=== PATIENT | female | born 1940 | race Caucasian/White ===

== ENCOUNTER 2018-11-21 00:04 | Inpatient (IN) | payer MEDICARE ==
[~2018-11-21] VITALS: Ht 160 cm; Wt 75.3 kg
[~2018-11-21 00:04] MED LIST: ALDACTONE50 MG PO; ASPIRIN325 MG PO; BENICAR HCT 20-1 TA1 PO; K-DUR20 MEQ PO; LASIX20 MG; LASIX20 MG PO; METOPROLOL TART50 MG PO; PRAVACHOL40 MG PO; SYMBICORT 16010.2 GM INH
[2018-11-21] MEDS ORDERED: ALBUTEROL SULF8.5 GM INH (00:09)
[2018-11-21 01:56] LABS: BASOPHILS 0.1 % (0-2); EOSINOPHILS 4.3 % (0-7); HEMATOCRIT 35.4 % (36.0-48.0); HEMOGLOBIN 11.8 g/dL (12-16); IMMATURE GRANULOCYTES 0.8 % (0-5); LYMPHOCYTES 10.2 % (15-50); MCH 28.5 pg (26.0-34.0); MCHC 33.3 g/dL (31.0-37.0); MCV 85.5 fL (80.0-100.0); MEAN PLATELET VOLUME 10.1 fL (7.4-10.4); MONOCYTES 13.2 % (2-11); NEUTROPHILS 71.4 % (40-80); PLATELET COUNT 233 10x3/uL (130-400); RBC 4.14 10x6/uL (4.00-5.40); RDW 15.6 % (11.5-14.5); WBC 15.4 10x3/uL (4.8-10.8)
[2018-11-21 02:06] LABS: APTT 23.6 SECONDS (22.8-39.4); INR 0.98 (0.85-1.17); PROTIME 12.5 SECONDS (11.6-15.0)
[2018-11-21 02:10] LABS: ALBUMIN 3.1 g/dL (3.4-5.0); ANION GAP 13.9 mmol/L (8-16); BILIRUBIN - TOTAL 0.14 mg/dL (0.2-1.3); CALCIUM 8.6 mg/dL (8.5-10.1); CREATININE - SERUM 1.8 mg/dL (0.6-1.3); POTASSIUM - SERUM 4.9 mmol/L (3.5-5.1); PROTEIN - SERUM 6.4 g/dL (6.4-8.2)
--- NOTE | 2018-11-21 03:30 | NUR ---
PT ARRIVED ON UNIT VIA WHEELCHAIR ESCORTED BY ER NURSE AND FAMILY MEMBERS. POSITIONED IN BED FOR COMFORT. ORIENTED TO ROOM AND CALL LIGHT.
[2018-11-21 04:00] VITALS: BP 167/70
--- NOTE | 2018-11-21 04:00 | NUR ---
STARTED IV FLUIDS PER ORDER.
[2018-11-21 04:02] VITALS: BP 167/70; BMI 29.4
--- NOTE | 2018-11-21 04:17 | NUR ---
ADMISSION ASSESSMENT AND HISTORY COMPLETE.
--- NOTE | 2018-11-21 08:06 | NUR ---
eyes closed, even unlabored breathing, family present in room, splint and juan josé wrap applied to right wrist, left wrist iv patent, ns at 50ml/hr, on room air, denies any current needs or discomforts, bed lowered and locked, call light within reach. cpoc
[2018-11-21 12:38] VITALS: Ht 160 cm; Wt 75.3 kg
--- NOTE | 2018-11-21 13:40 | NUR ---
PRE OP COMPLETED
[2018-11-21 14:20] VITALS: BP 159/65
--- NOTE | 2018-11-21 15:53 | NUR ---
RIGHT ARM BLOCK DONE IN HOLDING AREA PER ANESTHESIA PAULINE KUMARI.
--- NOTE | 2018-11-21 16:08 | NUR ---
I have reviewed this patient and I concur with the Shift Assessment completed by the Licensed Practical Nurse today this shift.
[2018-11-21 16:38] VITALS: BP 161/70
--- NOTE | 2018-11-21 19:00 | NUR ---
REPORT RECEIVED AND CARE OF PT ASSUMED. PT LYING IN HIGH HOOPER'S POSITION WITH RIGHT ARM IN A SLING. IV IN LEFT WRIST PATENT WITH NS INFUSING AT 50 ML / HR. WILL MONITOR FOR NEEDS.
--- NOTE | 2018-11-21 19:57 | NUR ---
GAVE TYLENOL 1000 ML PO PER REQUEST FOR PAIN. WILL MONITOR FOR EFFECTIVENESS.
[2018-11-21 20:00] VITALS: BP 155/82
--- NOTE | 2018-11-21 22:13 | NUR ---
PT RESTING IN LOW HOOPER'S POSITION WITH EYES CLOSED. RIGHT FINGERS PINK AND WARM. DAUGHTER IS AT BEDSIDE.
[2018-11-22 04:00] VITALS: BP 148/72
--- NOTE | 2018-11-22 04:26 | NUR ---
IV LEAKING...REMOVED WITH CATHETER TIP INTACT. RE-SITED TO LEFT WRIST USING 22 GUAGE CATHETER IN ONE STICK. IV FLUIDS RE-STARTED.
[2018-11-22 05:05] LABS: BASOPHILS 0.1 % (0-2); EOSINOPHILS 0 % (0-7); HEMOGLOBIN 11.4 g/dL (12-16); IMMATURE GRANULOCYTES 0.3 % (0-5); LYMPHOCYTES 4.6 % (15-50); MCH 28.2 pg (26.0-34.0); MCHC 32.6 g/dL (31.0-37.0); MCV 86.6 fL (80.0-100.0); MEAN PLATELET VOLUME 10.2 fL (7.4-10.4); MONOCYTES 8.6 % (2-11); NEUTROPHILS 86.4 % (40-80); PLATELET COUNT 232 10x3/uL (130-400); RBC 4.04 10x6/uL (4.00-5.40); RDW 15.5 % (11.5-14.5); WBC 14.7 10x3/uL (4.8-10.8)
[2018-11-22 05:30] LABS: ALBUMIN 3.1 g/dL (3.4-5.0); ANION GAP 17.4 mmol/L (8-16); BILIRUBIN - TOTAL 0.38 mg/dL (0.2-1.3); CALCIUM 8.9 mg/dL (8.5-10.1); CARBON DIOXIDE 22.4 mmol/L (21.0-32.0); CREATININE - SERUM 1.9 mg/dL (0.6-1.3); POTASSIUM - SERUM 4.8 mmol/L (3.5-5.1); PROTEIN - SERUM 6.8 g/dL (6.4-8.2)
--- NOTE | 2018-11-22 07:31 | NUR ---
EYES CLOSED, EASILY AROUSED BY VOICE, ON ROOM AIR, IV TO LEFT WRIST RUNNING NS AT 50ML/HR, SCDS PRESENT, SLING TO RIGHT ARM, LEVY BANAGE AND DRESSING SECURED TO RIGHT WRIST, DENIES ANY CURRENT NEEDS OR DISCOMFORTS, BED LOWERED AND LOCKED, CALL LIGHT WITHIN REACH. CPOC
[2018-11-22 07:56] VITALS: BP 140/80
[2018-11-22 12:49] VITALS: BP 109/76
[2018-11-22] MEDS ORDERED: LASIX40 MG PO (13:07)
--- NOTE | 2018-11-22 15:28 | MORECARE ---
CASE MANAGEMENT DISCHARGE SUMMARY PATIENT: MICHAELA CABRAL J UNIT: [id number] ADM DATE: 11/21/18 AGE: 78 : 41 SEX: F ROOM/BED: D.2224 AUTHOR: CRISPIN SON PHYSICIAN: REFERRING PHYSICIAN: TACOS VELEZ MD DATE OF SERVICE: 11/22/18 Discharge Plan Patient Name: MICHAELA CABRAL [facility] [facility] 1940 Planned Disposition: Home with Home Health Anticipated Discharge Date: 11/22/18 Discharge Date: Expected LOS: 1 Initial Reviewer: [email or web address] Initial Review Date: 11/21/2018 Generated: 11/22/18 4:28 pm DCPIA - Discharge Planning Initial Assessment Updated by [id number]: Kacie Pina on 11/22/18 3:28 pm * Is the patient Alert and Oriented? Yes * How many steps to enter\\exit or inside your home? "many" * PCP DR Velez * Pharmacy [facility] [place], [place] * Preadmission Environment Home Alone * ADLs Independent * Equipment None * Other Equipment N/A * List name and contact numbers for known caregivers / representatives who currently or will assist patient after discharge: Nathen Cabral- [facility]- [phone] [facility] [phone] * Verbal permission to speak to the caregivers and representatives has been obtained from the patient. Yes * Community resources currently utilized None * Please name any agencies selected above. n/a * Additional services required to return to the preadmission environment? Yes * Can the patient safely return to the preadmission environment? Yes * Has this patient been hospitalized within the prior 30 days at any hospital? No Patient Name: MICHAELA CABRAL Page 31147 at 1528 All edits/amendments must be made on the electronic document DICTATION DATE: 11/22/188 MEDIA PRODUCTION OPERATOR: RUTHIE 11/22/181527 RPT#: [id number] DC DATE: STATUS: ADM IN [facility] [address] [place] [address] END OF REPORT
--- NOTE | 2018-11-22 15:51 | MORECARE ---
CASE MANAGEMENT DISCHARGE SUMMARY PATIENT: MICHAELA CABRAL UNIT: [id number] ADM DATE: 11/21/18 AGE: 78 : 41 SEX: F ROOM/BED: D.2224 AUTHOR: HUY,DOC PHYSICIAN: REFERRING PHYSICIAN: TACOS VELEZ MD DATE OF SERVICE: 11/22/18 Discharge Plan Patient Name: MICHAELA CABRAL Facility: [facility]:[place] : 1940 Planned Disposition: Home with Home Health Anticipated Discharge Date: 11/22/18 Discharge Date: Expected LOS: 1 Initial Reviewer: [email or web address] Initial Review Date: 11/21/2018 Generated: 11/22/18 4:51 pm Comments DCP- Discharge Planning Updated by [email or web address]: Kacie Pina on 11/22/18 2:[address] [id number] CM HAD LONG DISCUSSION REGARDING HOME SERVICES, PROVIDERS, TYPES OF SERVICES AND PRIVATE HIRE ASSISTANCE. THE PATIENT' SON, NATHEN, WAS AT THE BEDSIDE. HE ALSO CALLED HIS SISTER, ALANA, TO DISCUSS TYPE OF CARE AND PROVIDERS. THE PATIENT GAVE PERMISSION TO SPEAK WITH HER SON AND DAUGHTER. THEY WERE GIVEN THE PROVIDER LIST. EACH ONE OF H/H WERE REVIEWED. PATIENT AND SON DECIDED NO HOME HEALTH THEN CALLED CM BACK AND REQUESTED [facility] FIRST CHOICE THEN [facility] SECOND CHOICE. POC FORM SIGNED. PATIENT WITH ORIGINAL COPY AND CM WITH ORIGINAL CHART COPY. PATIENT STATED HER DAUGHTER KNOWS THE DIRECTOR AT [facility] H/H. CM TOLD THE PATIENT AND HER SON I WOULD HAVE TO VERIFY THEY COVERED HER AREA IF NOT THEN WOULD CONTACT THEIR SECOND CHOICE [facility]. ADVISED I WOULD CALL IF I HAD TO CHANGE PROVIDERS. TELEPHONE CALL TO [facility] X2. RECEIVED ONLY A VOICE MAIL. MESSAGE LEFT. WILL AWAIT CB. ADVISED THE PATIENT AND HER SON. WILL CONTINUE TO ATTEMPT CONTACT. PATIENT HAS "MANY" STAIRS" TO ENTER HER HOME. THE SON DID NOT WANT TO SAY HOW MANY. STATES SHE WILL BE ASSISTED INTO THE HOUSE AND DOES NOT COME IN AND OUT. STAYS ON THE FIRST FLOOR OF THE HOME. NO DME. NO COMMUNITY OR HOME HEALTH SERVICES PRIOR TO ADMISSION. WAS INDEPENDENT IN HER CARE PRIOR TO THE FALL. STATES HOME IS SAFE. HAS SOME ASSISTANCE FROM HER SON AND DAUGHTER. PATIENT WAS INTERESTED IN PRIVATE SHINGLE CUTTER CARE FROM [facility] [address] AND [facility]. PROVIDED BROCHURE. PCP- DR VELEZ [facility] [place] [facility] [address]- SON WILL PROVIDE NO ADDITIONAL NEEDS IDENTIFIED AT THIS TIME. DCPIA - Discharge Planning Initial Assessment Updated by [email or web address]: Kacie Pina on 11/22/18 3:28 pm * Is the patient Alert and Oriented? Yes * How many steps to enter\\exit or inside your home? "many" * PCP DR Velez * Pharmacy [facility], [place] * Preadmission Environment Home Alone * ADLs Independent * Equipment None * Other Equipment N/A * List name and contact numbers for known caregivers / representatives who currently or will assist patient after discharge: Nathen Cabral- son- [phone] Alana Hunter- dtr- [phone] * Verbal permission to speak to the caregivers and representatives has been obtained from the patient. Yes * Community resources currently utilized None * Please name any agencies selected above. n/a * Additional services required to return to the preadmission environment? Yes * Can the patient safely return to the preadmission environment? Yes * Has this patient been hospitalized within the prior 30 days at any hospital? No Last DP export: 11/22/18 2:28 p Patient Name: MICHAELA CABRAL Page [id number] at 1551 All edits/amendments must be made on the electronic document DICTATION DATE: 11/22/181550 BOWLING BALL MOLD ASSEMBLER: RUTHIE 11/22/181550 RPT#: [id number] DC DATE: STATUS: ADM IN [facility] [address] [place] [address] END OF REPORT
--- NOTE | 2018-11-22 16:00 | NUR ---
DISCHARGE INSTRUCTIONS GIVEN. CASE MANAGEMENT HUBER IS WORKING WITH FAMILY IN ENSURING THEIR CHOICE OF HOME HEALTH IS SET UP, INFORMATION HAS BEEN FAXED TO [facility] WELL A PHONE CALL BEEN PLACED, FOLLOW UP APPOINTMENTS HAVE BEEN INSTRUCTED FOR PT TO CALL SATURDAY TO MAKE THEM, GIVEN INSTRUCTIONS IF THEY DO NOT HEAR FROM EITHER US OR HOME HEALTH TO CALL US SO WE CAN GET EVERYTHING STRAIGHTENED OUT. DENIES ANY CURRENT QUESTIONS OR NEEDS. TRANSPORTED OFF UNIT VIA WHEELCHAIR WITH FAMILY.
--- NOTE | 2018-11-25 06:52 | MORECARE ---
CASE MANAGEMENT DISCHARGE SUMMARY PATIENT: MICHAELA CABRAL UNIT: [id number] ADM DATE: 11/21/18 AGE: 78 : 41 SEX: F ROOM/BED: D.2224 AUTHOR: HUY,DOC PHYSICIAN: REFERRING PHYSICIAN: TACOS VELEZ MD DATE OF SERVICE: 11/25/18 Discharge Plan Patient Name: MICHAELA CABRAL Facility[facility]:[place] : 1940 Planned Disposition: Home with Home Health Anticipated Discharge Date: 11/22/18 Discharge Date: 11/22/2018 Expected LOS: 1 Initial Reviewer: [email or web address] Initial Review Date: 11/21/2018 Generated: 11/25/18 7:52 am Comments DCP- Discharge Planning Updated by [id number]: Kacie Pina on 11/22/18 2:[address] [phone] CM HAD LONG DISCUSSION REGARDING HOME SERVICES, PROVIDERS, TYPES OF SERVICES AND PRIVATE HIRE ASSISTANCE. THE PATIENT' SON, NATHEN, WAS AT THE BEDSIDE. HE ALSO CALLED HIS SISTER, ALANA, TO DISCUSS TYPE OF CARE AND PROVIDERS. THE PATIENT GAVE PERMISSION TO SPEAK WITH HER SON AND DAUGHTER. THEY WERE GIVEN THE PROVIDER LIST. EACH ONE OF H/H WERE REVIEWED. PATIENT AND SON DECIDED NO HOME HEALTH THEN CALLED CM BACK AND REQUESTED [facility] FIRST CHOICE THEN [facility] SECOND CHOICE. POC FORM SIGNED. PATIENT WITH ORIGINAL COPY AND CM WITH ORIGINAL CHART COPY. PATIENT STATED HER DAUGHTER KNOWS THE DIRECTOR AT [facility] H/H. CM TOLD THE PATIENT AND HER SON I WOULD HAVE TO VERIFY THEY COVERED HER AREA IF NOT THEN WOULD CONTACT THEIR SECOND CHOICE [facility]. ADVISED I WOULD CALL IF I HAD TO CHANGE PROVIDERS. TELEPHONE CALL TO [facility] X2. RECEIVED ONLY A VOICE MAIL. MESSAGE LEFT. WILL AWAIT CB. ADVISED THE PATIENT AND HER SON. WILL CONTINUE TO ATTEMPT CONTACT. PATIENT HAS "MANY" STAIRS" TO ENTER HER HOME. THE SON DID NOT WANT TO SAY HOW MANY. STATES SHE WILL BE ASSISTED INTO THE HOUSE AND DOES NOT COME IN AND OUT. STAYS ON THE FIRST FLOOR OF THE HOME. NO DME. NO COMMUNITY OR HOME HEALTH SERVICES PRIOR TO ADMISSION. WAS INDEPENDENT IN HER CARE PRIOR TO THE FALL. STATES HOME IS SAFE. HAS SOME ASSISTANCE FROM HER SON AND DAUGHTER. PATIENT WAS INTERESTED IN PRIVATE MEDICAL ESTHETICIAN CARE FROM [facility] [address] AND [facility]. PROVIDED BROCHURE. PCP- DR VELEZ [facility]- [place] [facility] [address]- SON WILL PROVIDE NO ADDITIONAL NEEDS IDENTIFIED AT THIS TIME. DCPIA - Discharge Planning Initial Assessment Updated by [id number]: Kacie Pina on 11/22/18 3:28 pm * Is the patient Alert and Oriented? Yes * How many steps to enter\\exit or inside your home? "many" * PCP DR Velez * Pharmacy [facility], [place] * Preadmission Environment Home Alone * ADLs Independent * Equipment None * Other Equipment N/A * List name and contact numbers for known caregivers / representatives who currently or will assist patient after discharge: Nathen Cabral- son- [phone] Alana Hunter- dtr- [phone] * Verbal permission to speak to the caregivers and representatives has been obtained from the patient. Yes * Community resources currently utilized None * Please name any agencies selected above. n/a * Additional services required to return to the preadmission environment? Yes * Can the patient safely return to the preadmission environment? Yes * Has this patient been hospitalized within the prior 30 days at any hospital? No Last DP export: 11/22/18 2:51 p Patient Name: MICHAELA CABRAL Page 18670 at 0652 All edits/amendments must be made on the electronic document DICTATION DATE: 11/25/18651 MACHINE SPLITTER: RUTHIE 11/25/1852 RPT#: [id number] DC DATE:11/22/18 STATUS: DIS IN [facility] [address] [facility] [place] [address] END OF REPORT
== END 2018-11-22 16:03 | disposition home health service (06) | DRG 511 ==
LOC: D.ER 00:04 → D.MS 02:10
PROVIDERS: Emergency Medicine; Orthopaedic Surgery; ADMIT Family Medicine; ATTEND Family Medicine
PROC: 0PSHXZZ Reposition Right Radius, External Approach (ICD-10-PCS; 2018-11-21)
PROC: 0PSH04Z Reposition Right Radius with Internal Fixation Device, Open Approach (ICD-10-PCS; principal; 2018-11-21 13:45)
DX: S62.101A Fracture of unspecified carpal bone, right wrist, initial encounter for closed fracture (principal); J81.1 Chronic pulmonary edema; W19.XXXA Unspecified fall, initial encounter; I10 Essential (primary) hypertension; I25.10 Atherosclerotic heart disease of native coronary artery without angina pectoris; E78.5 Hyperlipidemia, unspecified; J44.9 Chronic obstructive pulmonary disease, unspecified

== ENCOUNTER 2019-04-05 08:39 | Emergency (ER) | payer MEDICARE ==
[~2019-04-05] VITALS: Ht 160 cm; Wt 65.9 kg
[~2019-04-05 08:39] MED LIST changes: +ALBUTEROL SULF8.5 GM INH; +LASIX40 MG PO
[2019-04-05 08:47] VITALS: Ht 160 cm; Wt 65.9 kg
[2019-04-05] MEDS ORDERED: SINGULAIR10 MG PO (08:49)
[2019-04-05 09:34] LABS: BASOPHILS 0.3 % (0-2); EOSINOPHILS 6.1 % (0-7); HEMATOCRIT 40.3 % (36.0-48.0); HEMOGLOBIN 13.5 g/dL (12-16); IMMATURE GRANULOCYTES 0.3 % (0-5); LYMPHOCYTES 9.8 % (15-50); MCHC 33.5 g/dL (31.0-37.0); MCV 86.7 fL (80.0-100.0); MEAN PLATELET VOLUME 11.7 fL (7.4-10.4); MONOCYTES 10.5 % (2-11); PLATELET COUNT 220 10x3/uL (130-400); RBC 4.65 10x6/uL (4.00-5.40); RDW 14.6 % (11.5-14.5); WBC 11.6 10x3/uL (4.8-10.8)
[2019-04-05 10:14] LABS: ALBUMIN 3.3 g/dL (3.4-5.0); ANION GAP 13.6 mmol/L (8-16); BILIRUBIN - TOTAL 0.46 mg/dL (0.2-1.3); CALCIUM 8.6 mg/dL (8.5-10.1); CREATININE - SERUM 1.4 mg/dL (0.6-1.3); POTASSIUM - SERUM 4.6 mmol/L (3.5-5.1); PROTEIN - SERUM 6.2 g/dL (6.4-8.2)
[2019-04-05 10:15] LABS: TROPONIN-I 0.027 ng/mL (0.000-0.060)
[2019-04-05 12:13] LABS: TROPONIN-I 0.024 ng/mL (0.000-0.060)
[2019-04-05] MEDS ORDERED: ZOFRAN ODT4 MG/UDTAB PO (12:13)
[2019-04-05] MEDS ORDERED: LOMOTIL 2.5-0.1 EAC1 PO (12:13)
[2019-04-05 12:21] LABS: APPEARANCE CLEAR (CLEAR); BILIRUBIN NEGATIVE (NEGATIVE); COLOR STRAW (YELLOW); GLUCOSE NEGATIVE (NEGATIVE); KETONE NEGATIVE (NEGATIVE); NITRITE NEGATIVE (NEGATIVE); SPECIFIC GRAVITY 1.005 (1.005-1.020); UROBILINOGEN NORMAL (NORMAL)
[2019-04-05 12:22] LABS: EPITHELIAL CELLS RARE /hpf (0-5); PROTEIN 1+ mg/dL (NEGATIVE); RED CELLS - URINE RARE /hpf (0-5); WHITE CELLS - URINE RARE /hpf (0-5)
[2019-04-05 12:36] VITALS: BP 183/95
== END 2019-04-05 12:36 | disposition home or self-care (01) ==
LOC: D.ER 08:39
PROVIDERS: Emergency Medicine
DX: R10.13 Epigastric pain (principal); R19.7 Diarrhea, unspecified; N28.9 Disorder of kidney and ureter, unspecified; R11.10 Vomiting, unspecified

== ENCOUNTER 2019-08-06 08:43 | Inpatient (IN) | payer MEDICARE ==
[~2019-08-06] VITALS: Ht 160 cm; Wt 65.5 kg
[2019-08-06] VITALS (7 sets, daily range): BP systolic 138–177; BP diastolic 66–95; Ht 160 cm; Wt 65.5 kg
[~2019-08-06 08:43] MED LIST changes: +LOMOTIL 2.5-0.1 EAC1 PO; +SINGULAIR10 MG PO; +ZOFRAN ODT4 MG/UDTAB PO
[2019-08-06 09:34] LABS: BASOPHILS 0.3 % (0-2); EOSINOPHILS 0.4 % (0-7); HEMATOCRIT 45.4 % (36.0-48.0); HEMOGLOBIN 14.3 g/dL (12-16); IMMATURE GRANULOCYTES 0.4 % (0-5); LYMPHOCYTES 7.7 % (15-50); MCH 28.4 pg (26.0-34.0); MCHC 31.5 g/dL (31.0-37.0); MCV 90.3 fL (80.0-100.0); MEAN PLATELET VOLUME 9.9 fL (7.4-10.4); MONOCYTES 11.6 % (2-11); NEUTROPHILS 79.6 % (40-80); PLATELET COUNT 229 10x3/uL (130-400); RBC 5.03 10x6/uL (4.00-5.40); RDW 14.7 % (11.5-14.5); WBC 11.6 10x3/uL (4.8-10.8)
--- NOTE | 2019-08-06 09:35 | NUR ---
PT PRESENTS TO ED VIA [facility] AFTER BEING FOUND ON THE FLOOR UNCLOTHED THIS AM BY HER DAUGHTER. HER LAST KNOWN WELL TIME IS APPROX 1900 LAST NIGHT. PT HAS A SMALL SKIN TEAR TO RT ARM. PT IS COOPERATIVE WITH ASSESSMENT YET ARGUMENTATIVE. SHE IS ABLE TO SELF REPORT HER NAME. DOES NOT ANSWER QUESTIONS RELATED TO SITUATION, PLACE, OR TIME. SHE DOES SPEAK THROUGHOUT ASSESSMENT "PLEASE LEAVE ME ALONE, MY ARM HURTS, IT IS COLD" ETC. VSS - LUNGS BCTA. NO DRIFT OF LT ARM, BILATERAL LEGS - PT REFUSES RT ARM ASSESSMENT FOR DRIFT DUE TO PAIN. FAMILY REPORTS SHE HAD "SURGERY A COUPLE OF MONTHS AGO FOR SOMETHING TO DO WITH HER ARM." WILL CONTINUE TO MONITOR PT.
[2019-08-06 09:39] LABS: COLOR YELLOW (YELLOW)
[2019-08-06 09:40] LABS: AMORPHOUS SEDIMENT <1+ /lpf (NONE SEEN); APPEARANCE CLEAR (CLEAR); BACTERIA FEW /hpf (NEGATIVE); BILIRUBIN NEGATIVE (NEGATIVE); EPITHELIAL CELLS OCC /hpf (0-5); GLUCOSE NEGATIVE (NEGATIVE); KETONE SMALL mg/dL (NEGATIVE); MUCUS <1+ /lpf (NONE SEEN); NITRITE NEGATIVE (NEGATIVE); PROTEIN 2+ mg/dL (NEGATIVE); RED CELLS - URINE NONE SEEN /hpf (0-5); SPECIFIC GRAVITY 1.015 (1.005-1.020); UROBILINOGEN NORMAL (NORMAL); WHITE CELLS - URINE RARE /hpf (NEGATIVE)
--- NOTE | 2019-08-06 09:40 | NUR ---
FSBS 124
[2019-08-06 09:51] LABS: CALC OSMOLALITY 270 mosm/kg (275-300); CALCIUM 9.4 mg/dL (8.5-10.1); CHLORIDE - SERUM 97 mmol/L (98-107); CREATININE - SERUM 1.7 mg/dL (0.6-1.3); GLUCOSE 104 mg/dL (74-106); POTASSIUM - SERUM 4.2 mmol/L (3.5-5.1); SODIUM 133 mmol/L (136-145); UREA NITROGEN 27 mg/dL (7-18); eGFR NON AFRICAN AMERICAN 31 mL/min (90-120)
[2019-08-06 09:53] LABS: UDS - AMPHET NEGATIVE QUAL (NEGATIVE); UDS - BARB NEGATIVE QUAL (NEGATIVE); UDS - BENZO NEGATIVE QUAL (NEGATIVE); UDS - COCAINE NEGATIVE QUAL (NEGATIVE); UDS - OPIATE NEGATIVE QUAL (NEGATIVE); UDS - PCP NEGATIVE QUAL (NEGATIVE); UDS - THC NEGATIVE QUAL (NEGATIVE)
[2019-08-06 09:55] LABS: APTT 33.9 SECONDS (22.8-39.4); INR 1.12 (0.85-1.17); PROTIME 13.9 SECONDS (11.6-15.0)
[2019-08-06 10:07] LABS: ALBUMIN 3.5 g/dL (3.4-5.0); ALKALINE PHOSPHATASE 113 U/L (46-116); ALT (SGPT) 21 U/L (10-68); BILIRUBIN - TOTAL 0.36 mg/dL (0.2-1.3); CKMB 0.8 U/L (0.0-3.6); CREATINE KINASE 70 UL (21-215); MAGNESIUM - SERUM 2.1 mg/dL (1.8-2.4); THYROID STIMULATING HORMONE 2.33 uIU/mL (0.36-3.74)
[2019-08-06 10:09] LABS: TROPONIN-I < 0.017 ng/mL (0.000-0.060)
--- NOTE | 2019-08-06 11:40 | NUR ---
RECIEVE PT FROM ER. PT ALERT AND CONFUSED. SHE HAS A L AC PIV INFUSING NS @125. RR EVEN AND UNLABORED. NO DISTRESS NOTED. WILL CTM
[2019-08-06] MEDS ORDERED: POTASSIUM99 M1 PO (12:57)
--- NOTE | 2019-08-06 13:00 | NUR ---
CALLED DR. SUTTON OFFICE TO OBTAIN MAR ON PT.
[2019-08-06] MEDS ORDERED: NORVASC5 MG PO (13:02)
--- NOTE | 2019-08-06 13:19 | MORECARE ---
CASE MANAGEMENT DISCHARGE SUMMARY PATIENT: MICHAELA CABRAL J UNIT: [id number] ADM DATE: 08/06/19 AGE: 79 : 41 SEX: F ROOM/BED: D.2102 AUTHOR: HUY,DOC PHYSICIAN: REFERRING PHYSICIAN: TACOS VELEZ MD DATE OF SERVICE: 08/06/19 Discharge Plan Patient Name: MICHAELA CABRAL Facility: [facility]:[place] : 1940 Planned Disposition: Home Anticipated Discharge Date: 08/08/19 Discharge Date: Expected LOS: 2 Initial Reviewer: [email or web address] Initial Review Date: 08/06/2019 Generated: 08/06/19 2:18 pm DCPIA - Discharge Planning Initial Assessment Updated by [email or web address]: Laverne Moore on 08/06/19 1:13 pm * Is the patient Alert and Oriented? Yes * How many steps to enter\exit or inside your home? * PCP Dr. Velez * Pharmacy [facility] on [address] * Preadmission Environment Home Alone * ADLs Partial Dependent * Partial ADLs (Assistance needed) Bathing Medication Management * Equipment Oxygen Rolling Walker * Other Equipment pulse ox Oxygen with portability - [facility] is DME provider. Wears O2 prn according to the family. * List name and contact numbers for known caregivers / representatives who currently or will assist patient after discharge: Alana Hunter - daughter - [phone] * Verbal permission to speak to the caregivers and representatives has been obtained from the patient. Yes * Community resources currently utilized None * Please name any agencies selected above. Recently discharged from [facility] signed for [facility] if needed at [place]. Daughter signed the form. * Can the patient safely return to the preadmission environment? Yes * Has this patient been hospitalized within the prior 30 days at any hospital? No Coverage Notice Reviewer: [id number] - Laverne Moore Notice Issued Date-Time: 08/06/2019 11:15 Notice Type: Medicare Outpatient Observation Notice Notice Delivered To: Family Member Relationship to Patient: Daughter Tube Machine Operator Name: Leyda Hunter Delivery Method: HAND - Hand Delivered Iliana Days: Prior Verbal Notification: Recipient Understood Notice: Recipient Signature: Med Rec Note Co-signed by Attending: Coverage Notice Comment: Patient Name: MICHAELA CABRAL Page 97020 at 1319 All edits/amendments must be made on the electronic document DICTATION DATE: 08/06/191317 EDGING MACHINE OPERATOR: RUTHIE 08/06/191317 RPT#: [id number] DC DATE: STATUS: ADM IN [facility] [address] [place] [address] END OF REPORT
--- NOTE | 2019-08-06 13:27 | MORECARE ---
CASE MANAGEMENT DISCHARGE SUMMARY PATIENT: MICHAELA CABRAL UNIT: [id number] ADM DATE: 08/06/19 AGE: 79 : 41 SEX: F ROOM/BED: D.2100 AUTHOR: HUY,CRISPIN PHYSICIAN: REFERRING PHYSICIAN: TACOS VELEZ MD DATE OF SERVICE: 08/06/19 Discharge Plan Patient Name: MICHAELA CABRAL Facility: [facility]:[place] : 1940 Planned Disposition: Home Anticipated Discharge Date: 08/08/19 Discharge Date: Expected LOS: 2 Initial Reviewer: [email or web address] Initial Review Date: 08/06/2019 Generated: 08/06/19 2:27 pm DCP- Discharge Planning Updated by [email or web address]: Laverne Moore on 08/06/19 12:[address] DC PLAN: Return home with daughter next door. ANTICIPATED DC NEEDS: GISEL signed for [facility] and [employer] for DME. CM met with patient, her daughter, and son to complete initial dc planning assessment. CM educated patient on the CM role and verbal consent given by patient to complete assessment. CM verified patient's address, phone number, and emergency contact phone numbers. Patient lives at home alone and her daughter lives next door to her. Her daughter reports the patient has shoulder surgery back in April. Since that time she helps the patient shower, she fills her medication box, and her and her brother bring her meals frequently. She reports the patient could do all of these things on her own but she insists on helping her mother for safety. Patient had [facility] after her shoulder surgery but they recently discharged her from their service. At discharge patient plans to return home and feels the daughter and son feel this is a safe discharge. They said they want to talk to Dr. Velez about some concerns they have but would not elaborate with CM . CM discussed availability of home health, rehab services, and medical equipment. CM went ahead and provided GISEL form and form signed by daughter for [employer] [facility] [employer] in case these services would be needed at [place]. Transportation provider at discharge will be either daughter or son. CM will continue to follow and will assist as needed with dc plans/needs. Laverne Moore RN, [facility] DCPIA - Discharge Planning Initial Assessment Updated by [id number]: Laverne Moore on 08/06/19 1:13 pm * Is the patient Alert and Oriented? Yes * How many steps to enter\exit or inside your home? * PCP Dr. Velez * Pharmacy [facility] on [address] * Preadmission Environment Home Alone * ADLs Partial Dependent * Partial ADLs (Assistance needed) Bathing Medication Management * Equipment Oxygen Rolling Walker * Other Equipment pulse ox Oxygen with portability - [facility] is DME provider. Wears O2 prn according to the family. * List name and contact numbers for known caregivers / representatives who currently or will assist patient after discharge: Alana Hunter - daughter - [phone] * Verbal permission to speak to the caregivers and representatives has been obtained from the patient. Yes * Community resources currently utilized None * Please name any agencies selected above. Recently discharged from [facility] signed for [facility] if needed at [place]. Daughter signed the form. * Can the patient safely return to the preadmission environment? Yes * Has this patient been hospitalized within the prior 30 days at any hospital? No Coverage Notice Reviewer: [id number] - Laverne Moore Notice Issued Date-Time: 08/06/2019 11:15 Notice Type: Medicare Outpatient Observation Notice Notice Delivered To: Family Member Relationship to Patient: Daughter Button Cutter Name: Leyda Hunter Delivery Method: HAND - Hand Delivered Iliana Days: Prior Verbal Notification: Recipient Understood Notice: Recipient Signature: Med Rec Note Co-signed by Attending: Coverage Notice Comment: Last DP export: 08/06/19 12:19 Patient Name: MICHAELA CABRAL Page [id number] at 1327 All edits/amendments must be made on the electronic document DICTATION DATE: 08/06/19 1327 PAPER PLATE MACHINE TENDER: RUTHIE 08/06/19 1327 RPT#: [id number] DC DATE: STATUS: ADM IN [facility] [address] [place] [address] END OF REPORT
--- NOTE | 2019-08-06 14:05 | NUR ---
STILL NO FAX FROM OFFICE ABOUT PTS OCT. FAMILY BROUGHT MEDICATION BOTTLES TO GET INFORMATION FROM. WILL CTM
--- NOTE | 2019-08-06 19:15 | NUR ---
BEDSIDE REPORT RECEIVED FROM DAY SHIFT, PT CARE ASSUMED. INTRODUCED SELF AND WROTE NAME ON BOARD. PT LYING IN BED WITH EYES CLOSED, RR EVEN AND NONLABORED, NO S/S OF DISTRESS, AROUSES EASILY TO VOICE. ORIENTED X3, REORIENTED TO SITUATION, LETHARGIC, SLOW TO RESPOND. DENIES PAIN OR ANY NEEDS AT THIS TIME. BED IN LOWEST POSITION, SR X3, CALL LIGHT WITHIN REACH. WILL CONTINUE TO MONITOR.
[2019-08-07 04:00] VITALS: BP 122/68
[2019-08-07 05:07] LABS: BASOPHILS 0.4 % (0-2); EOSINOPHILS 0.8 % (0-7); HEMOGLOBIN 12.5 g/dL (12-16); IMMATURE GRANULOCYTES 0.4 % (0-5); LYMPHOCYTES 15.1 % (15-50); MCH 28.3 pg (26.0-34.0); MCHC 32.1 g/dL (31.0-37.0); MEAN PLATELET VOLUME 10.1 fL (7.4-10.4); MONOCYTES 13.3 % (2-11); RBC 4.42 10x6/uL (4.00-5.40); RDW 14.5 % (11.5-14.5); WBC 10.4 10x3/uL (4.8-10.8)
[2019-08-07 05:16] LABS: MCV 88.2 fL (80.0-100.0); PLATELET COUNT 315 10x3/uL (130-400)
[2019-08-07 05:48] LABS: ALBUMIN 3.1 g/dL (3.4-5.0); ANION GAP 15.8 mmol/L (8-16); BILIRUBIN - TOTAL 0.41 mg/dL (0.2-1.3); CALCIUM 9.1 mg/dL (8.5-10.1); CARBON DIOXIDE 22.3 mmol/L (21.0-32.0); CREATININE - SERUM 1.6 mg/dL (0.6-1.3); POTASSIUM - SERUM 4.1 mmol/L (3.5-5.1); PROTEIN - SERUM 6.6 g/dL (6.4-8.2)
--- NOTE | 2019-08-07 07:30 | NUR ---
REPORT RECIEVED. PT SITTING SEMI FOWLERS IN BED. RR EVEN AND UNLABORED. PT HAS A L AC PIV INFUSING NS @ 125. SON AT BEDSIDE. BED LOCKED AND IN LOWEST POSITION, CALL LIGHT WITHIN REACH. WILL CTM
[2019-08-07 09:30] VITALS: BP 174/96
--- NOTE | 2019-08-07 14:43 | NUR ---
I have reviewed this patient and I concur with the Shift Assessment completed by the Licensed Practical Nurse today this shift.
--- NOTE | 2019-08-07 17:06 | MORECARE ---
CASE MANAGEMENT DISCHARGE SUMMARY PATIENT: MICHAELA CABRAL UNIT: [id number] ADM DATE: 08/06/19 AGE: 79 : 41 SEX: F ROOM/BED: D.1475 AUTHOR: CRISPIN SON PHYSICIAN: REFERRING PHYSICIAN: TACOS VELEZ MD DATE OF SERVICE: 08/07/19 Discharge Plan Patient Name: MICHAELA CABRAL Facility: [facility]:[place] : 1940 Planned Disposition: Home Anticipated Discharge Date: 08/08/19 Discharge Date: Expected LOS: 2 Initial Reviewer: [email or web address] Initial Review Date: 08/06/2019 Generated: 08/07/19 6:06 pm Comments DCP- Discharge Planning Updated by [email or web address]: Re Connors on 08/07/19 4:[address] Patient Name: MICHAELA CABRAL Admission Status: ER Accout number: [id number] Admission Date: 08-06-2019 : 1940 Admission Diagnosis: Attending: TACOS VELEZ Current LOS: 1 Anticipated DC Date: 08-08-2019 Planned Disposition: Home Primary Insurance: MEDICARE A & B Discharge Planning Comments: NOTIFIED AND FAXED REFERRAL TO [facility] . GISEL SIGNED. POSSIBLE DC TOMORROW. Ice Cream Freezer: Re Connors DCP- Discharge Planning Updated by [id number]: Laverne Moore on 08/06/19 12:[address] DC PLAN: Return home with daughter next door. ANTICIPATED DC NEEDS: GISEL signed for [facility] and [facility] for DME. CM met with patient, her daughter, and son to complete initial dc planning assessment. CM educated patient on the CM role and verbal consent given by patient to complete assessment. CM verified patient's address, phone number, and emergency contact phone numbers. Patient lives at home alone and her daughter lives next door to her. Her daughter reports the patient has shoulder surgery back in April. Since that time she helps the patient shower, she fills her medication box, and her and her brother bring her meals frequently. She reports the patient could do all of these things on her own but she insists on helping her mother for safety. Patient had [facility] after her shoulder surgery but they recently discharged her from their service. At discharge patient plans to return home and feels the daughter and son feel this is a safe discharge. They said they want to talk to Dr. Velez about some concerns they have but would not elaborate with CM . CM discussed availability of home health, rehab services, and medical equipment. CM went ahead and provided GISEL form and form signed by daughter for [facility] and [facility] in case these services would be needed at or. Transportation provider at discharge will be either daughter or son. CM will continue to follow and will assist as needed with dc plans/needs. Laverne Moore RN, [facility] DCPIA - Discharge Planning Initial Assessment Updated by [email or web address]: Laverne Moore on 08/06/19 1:13 pm * Is the patient Alert and Oriented? Yes * How many steps to enter\exit or inside your home? * PCP Dr. Velez * Pharmacy [facility] on [address] * Preadmission Environment Home Alone * ADLs Partial Dependent * Partial ADLs (Assistance needed) Bathing Medication Management * Equipment Oxygen Rolling Walker * Other Equipment pulse ox Oxygen with portability - [facility] is DME provider. Wears O2 prn according to the family. * List name and contact numbers for known caregivers / representatives who currently or will assist patient after discharge: Alana Hunter - daughter - [phone] * Verbal permission to speak to the caregivers and representatives has been obtained from the patient. Yes * Community resources currently utilized None * Please name any agencies selected above. Recently discharged from [facility] - GISEL signed for [facility] if needed at or. Daughter signed the form. * Can the patient safely return to the preadmission environment? Yes * Has this patient been hospitalized within the prior 30 days at any hospital? No External Providers [facility] Next Contact Date: Service Request Date: Service Type: Resolution: Reviewer: Comments: Coverage Notice Reviewer: [id number] - Laverne Moore Notice Issued Date-Time: 08/06/2019 11:15 Notice Type: Medicare Outpatient Observation Notice Notice Delivered To: Family Member Relationship to Patient: Daughter Manufacturing Lab Technician Name: Leyda Hunter Delivery Method: HAND - Hand Delivered Iliana Days: Prior Verbal Notification: Recipient Understood Notice: Recipient Signature: Med Rec Note Co-signed by Attending: Coverage Notice Comment: Last DP export: 08/06/19 12:27 Patient Name: MICHAELA CABRAL Page 89180 at 1706 All edits/amendments must be made on the electronic document DICTATION DATE: 08/07/191705 SAW OPERATOR: RUTHIE 08/07/191705 RPT#: [id number] DC DATE: STATUS: ADM IN [facility] [address] [place] [address] END OF REPORT
--- NOTE | 2019-08-07 17:28 | MORECARE ---
CASE MANAGEMENT DISCHARGE SUMMARY PATIENT: MICHAELA CABRAL UNIT: [id number] ADM DATE: 08/06/19 AGE: 79 : 41 SEX: F ROOM/BED: D.210 AUTHOR: CRISPIN SON PHYSICIAN: REFERRING PHYSICIAN: TACOS VELEZ MD DATE OF SERVICE: 08/07/19 Discharge Plan Patient Name: MICHAELA CABRAL Facility: [facility]:[place] : 1940 Planned Disposition: Home Anticipated Discharge Date: 08/08/19 Discharge Date: Expected LOS: 2 Initial Reviewer: [email or web address] Initial Review Date: 08/06/2019 Generated: 08/07/19 6:28 pm Comments DCP- Discharge Planning Updated by [email or web address]: Milan Martinez on 08/07/19 4:[address] Patient Name: MICHAELA CABRAL Encounter No: [id number] : 1940 Primary Insurance: MEDICARE A & B Anticipated DC Date: 08-08-2019 Planned Disposition: Home with home health External Planned Provider: [facility] DCP follow-up note: CM RECEIVED ORDER TO DISCUSS DISCHARGE PLAN AND ENCOURAGE HOME HEALTH PARTICIPATION. CM MET WITH PT AND DAUGHTER IN ROOM, PT WILL NOT CONSENT TO STAY FOR REHAB OR GO TO REHAB AT [facility] FACILITY. PT WILL DISCHARGE HOME AND WILL ACCEPT WITH HOME HEALTH DISCUSSED WITH ER LIQUOR COMMISSIONER YESTERDAY, CHOICE SIGNED PREVIOUSLY FOR [facility]. IMPORTANT MESSAGE FROM MEDICARE. AKHIL MENDOZA FAXED REFERRAL TO [facility] AND NOTIFIED [facility] OF PT'S POSSIBLE DISCHARGE HOME TOMORROW RELATED BY FAMILY IN ROOM. FOR DISCHARGE, NOTIFY [facility] AT [phone]. FAX DISCHARGE INFORMATION TO [facility] AT [phone]. FAMILY TO TRANSPORT HOME. Milan Martinez CASE MANAGEMENT DCP- Discharge Planning Updated by [id number]: Re Mendoza on 08/07/19 4:[address] Patient Name: MICHAELA CABRAL Admission Status: ER Accout number: [id number] Admission Date: 08-06-2019 : 1940 Admission Diagnosis: Attending: TAOCS VELEZ Current LOS: 1 Anticipated DC Date: 08-08-2019 Planned Disposition: Home Primary Insurance: MEDICARE A & B Discharge Planning Comments: NOTIFIED AND FAXED REFERRAL TO [facility] . GISEL SIGNED. POSSIBLE DC TOMORROW. Strategies Analyst: Re Mendoza DCP- Discharge Planning Updated by [email or web address]: Laverne Moore on 08/06/19 12:[address] DC PLAN: Return home with daughter next door. ANTICIPATED DC NEEDS: GISEL signed for [employer] and [facility] for DME. CM met with patient, her daughter, and son to complete initial dc planning assessment. CM educated patient on the CM role and verbal consent given by patient to complete assessment. CM verified patient's address, phone number, and emergency contact phone numbers. Patient lives at home alone and her daughter lives next door to her. Her daughter reports the patient has shoulder surgery back in April. Since that time she helps the patient shower, she fills her medication box, and her and her brother bring her meals frequently. She reports the patient could do all of these things on her own but she insists on helping her mother for safety. Patient had [facility] after her shoulder surgery but they recently discharged her from their service. At discharge patient plans to return home and feels the daughter and son feel this is a safe discharge. They said they want to talk to Dr. Velez about some concerns they have but would not elaborate with CM . CM discussed availability of home health, rehab services, and medical equipment. CM went ahead and provided GISEL form and form signed by daughter for [facility] and [facility] in case these services would be needed at [place]. Transportation provider at discharge will be either daughter or son. CM will continue to follow and will assist as needed with dc plans/needs. Laverne Moore RN, [facility] DCPIA - Discharge Planning Initial Assessment Updated by [email or web address]: Laverne Moore on 08/06/19 1:13 pm * Is the patient Alert and Oriented? Yes * How many steps to enter\exit or inside your home? * PCP Dr. Velez * Pharmacy [facility] on [address] * Preadmission Environment Home Alone * ADLs Partial Dependent * Partial ADLs (Assistance needed) Bathing Medication Management * Equipment Oxygen Rolling Walker * Other Equipment pulse ox Oxygen with portability - [facility] is DME provider. Wears O2 prn according to the family. * List name and contact numbers for known caregivers / representatives who currently or will assist patient after discharge: Alana Hunter - daughter - [phone] * Verbal permission to speak to the caregivers and representatives has been obtained from the patient. Yes * Community resources currently utilized None * Please name any agencies selected above. Recently discharged from [facility] signed for [facility] needed at [place]. Daughter signed the form. * Can the patient safely return to the preadmission environment? Yes * Has this patient been hospitalized within the prior 30 days at any hospital? No Coverage Notice Reviewer: [email or web address] Apoorva Moore Notice Issued Date-Time: 08/06/2019 11:15 Notice Type: Medicare Outpatient Observation Notice Notice Delivered To: Family Member Relationship to Patient: Daughter Publication Manager Name: Leyda Hunter Delivery Method: HAND - Hand Delivered Iliana Days: Prior Verbal Notification: Recipient Understood Notice: Recipient Signature: Med Rec Note Co-signed by Attending: Coverage Notice Comment: Reviewer: [email or web address] - Milan Martinez Notice Issued Date-Time: 08/07/2019 16:55 Notice Type: IM Discharge Notice Notice Delivered To: Family Member Relationship to Patient: Daughter Publication Manager Name: ALANA HUNTER Delivery Method: HAND - Hand Delivered Iliana Days: Prior Verbal Notification: Recipient Understood Notice: Yes Recipient Signature: Yes Med Rec Note Co-signed by Attending: Coverage Notice Comment: Last DP export: 08/07/19 4:06 Patient Name: MICHAELA CABRAL Page 08898 at 1728 All edits/amendments must be made on the electronic document DICTATION DATE: 08/07/191727 PHP DEVELOPER: RUTHIE 08/07/191727 RPT#: [id number] [place] DATE: STATUS: ADM IN [facility] [address] [place] [address] END OF REPORT
[2019-08-07 17:32] VITALS: BP 138/73
--- NOTE | 2019-08-07 19:10 | NUR ---
BEDSIDE REPORT RECEIVED FROM DAY SHIFT, PT CARE ASSUMED. WROTE NAME ON BOARD, PT UP TO BATHROOM AND BACK TO BED WITH PHILOMENA JONES. PT AAOX4, DENIES PAIN OR ANY OTHER NEEDS AT THIS TIME. BED IN LOWEST POSITION, SR X3, CALL LIGHT WITHIN REACH. WILL CONTINUE TO MONITOR.
--- NOTE | 2019-08-07 19:26 | NUR ---
OT NOTE: PT COMPLETED SIMPLE HYGIENE TASKS WITH SPV. THANK YOU,ALTAGRACIA HAUSER
[2019-08-07 20:00] VITALS: BP 170/78
[2019-08-08] VITALS (7 sets, daily range): BP systolic 124–161; BP diastolic 44–99
--- NOTE | 2019-08-08 07:30 | NUR ---
A/A/OX4. NO COMPLAINTS AND DENIES ANY PAIN OR DISCOMFORT, VOICES NOT REQUESTS. IV PATENT TO LEFT AC AND INFUSING WELL WITHOUT REDNESS OR EDEMA. ASSESSMENT COMPLETED AND WILL CONTINUE POC. PT STATES SHE IS HOPING TO BE DISCHARGED TODAY.
--- NOTE | 2019-08-08 18:28 | NUR ---
REVIEWED ASSESSMENT BY DIRECTOR OF SCIENCE AND I CONCUR.
--- NOTE | 2019-08-08 18:40 | MORECARE ---
CASE MANAGEMENT DISCHARGE SUMMARY PATIENT: MICHAELA CABRAL UNIT: [id number] ADM DATE: 08/06/19 AGE: 79 : 41 SEX: F ROOM/BED: D.2109 AUTHOR: HUY,DOC PHYSICIAN: REFERRING PHYSICIAN: TACOS VELEZ MD DATE OF SERVICE: 08/08/19 Discharge Plan Patient Name: MICHAELA CABRAL Facility: [facility]:[place] : 1940 Planned Disposition: Home Anticipated Discharge Date: 08/08/19 Discharge Date: Expected LOS: 2 Initial Reviewer: [email or web address] Initial Review Date: 08/06/2019 Generated: 08/08/19 7:39 pm Comments DCP- Discharge Planning Updated by [id number]: Marcelina Bailey on 08/08/19 5:[address] CM contacted [facility], spoke with Alejandro, to make aware of discharge today. DC information faxed to [facility] @[phone]. No other needs. DCP- Discharge Planning Updated by [email or web address]: Milan Martinez on 08/07/19 4:[address] Patient Name: MICHAELA CABRAL Encounter No: [id number] : 1940 Primary Insurance: MEDICARE A & B Anticipated DC Date: 08-08-2019 Planned Disposition: Home with home health External Planned Provider: [facility] DCP follow-up note: CM RECEIVED ORDER TO DISCUSS DISCHARGE PLAN AND ENCOURAGE HOME HEALTH PARTICIPATION. CM MET WITH PT AND DAUGHTER IN ROOM, PT WILL NOT CONSENT TO STAY FOR REHAB OR GO TO REHAB AT [facility] FACILITY. PT WILL DISCHARGE HOME AND WILL ACCEPT WITH HOME HEALTH DISCUSSED WITH ER WIRE WHEELER YESTERDAY, CHOICE SIGNED PREVIOUSLY FOR [facility]. IMPORTANT MESSAGE FROM MEDICARE. RN PRETTY MENDOZA FAXED REFERRAL TO [facility] AND NOTIFIED [facility] OF PT'S POSSIBLE DISCHARGE HOME TOMORROW RELATED BY FAMILY IN ROOM. FOR DISCHARGE, NOTIFY [facility] AT [phone]. FAX DISCHARGE INFORMATION TO [facility] AT [phone]. FAMILY TO TRANSPORT HOME. Milan Martinez CASE MANAGEMENT DCP- Discharge Planning Updated by [email or web address]: Re Mendoza on 08/07/19 4:[address] Patient Name: MICHAELA CABRAL Admission Status: ER Accout number: [id number] Admission Date: 08-06-2019 : 1940 Admission Diagnosis: Attending: TACOS VELEZ Current LOS: 1 Anticipated DC Date: 08-08-2019 Planned Disposition: Home Primary Insurance: MEDICARE A & B Discharge Planning Comments: NOTIFIED AND FAXED REFERRAL TO [facility]. GISEL SIGNED. POSSIBLE DC TOMORROW. Electronic Commerce Specialist: Re Mendoza DCP- Discharge Planning Updated by [email or web address]: Laverne Moore on 08/06/19 12:[address] DC PLAN: Return home with daughter next door. ANTICIPATED DC NEEDS: IGSEL signed for [employer] and [employer] for DME. CM met with patient, her daughter, and son to complete initial dc planning assessment. CM educated patient on the CM role and verbal consent given by patient to complete assessment. CM verified patient's address, phone number, and emergency contact phone numbers. Patient lives at home alone and her daughter lives next door to her. Her daughter reports the patient has shoulder surgery back in April. Since that time she helps the patient shower, she fills her medication box, and her and her brother bring her meals frequently. She reports the patient could do all of these things on her own but she insists on helping her mother for safety. Patient had [facility] after her shoulder surgery but they recently discharged her from their service. At discharge patient plans to return home and feels the daughter and son feel this is a safe discharge. They said they want to talk to Dr. Velez about some concerns they have but would not elaborate with CM . CM discussed availability of home health, rehab services, and medical equipment. CM went ahead and provided GISEL form and form signed by daughter for [employer] [facility] and [employer] in case these services would be needed at [place]. Transportation provider at discharge will be either daughter or son. CM will continue to follow and will assist as needed with dc plans/needs. Laverne Moore RN, [facility] DCPIA - Discharge Planning Initial Assessment Updated by [email or web address]: Laverne Moore on 08/06/19 1:13 pm * Is the patient Alert and Oriented? Yes * How many steps to enter\exit or inside your home? * PCP Dr. Velez * Pharmacy [facility] on [address] * Preadmission Environment Home Alone * ADLs Partial Dependent * Partial ADLs (Assistance needed) Bathing Medication Management * Equipment Oxygen Rolling Walker * Other Equipment pulse ox Oxygen with portability - [facility] is DME provider. Wears O2 prn according to the family. * List name and contact numbers for known caregivers / representatives who currently or will assist patient after discharge: Alana Hunter - daughter - [phone] * Verbal permission to speak to the caregivers and representatives has been obtained from the patient. Yes * Community resources currently utilized None * Please name any agencies selected above. Recently discharged from [facility] signed for [facility] if needed at [place]. Daughter signed the form. * Can the patient safely return to the preadmission environment? Yes * Has this patient been hospitalized within the prior 30 days at any hospital? No Coverage Notice Reviewer: [id number] Apoorva Moore Notice Issued Date-Time: 08/06/2019 11:15 Notice Type: Medicare Outpatient Observation Notice Notice Delivered To: Family Member Relationship to Patient: Daughter Board Certified Music Therapist Name: Leyda Hunter Delivery Method: HAND - Hand Delivered Iliana Days: Prior Verbal Notification: Recipient Understood Notice: Recipient Signature: Med Rec Note Co-signed by Attending: Coverage Notice Comment: Reviewer: [id number] - Milan Martinez Notice Issued Date-Time: 08/07/2019 16:55 Notice Type: IM Discharge Notice Notice Delivered To: Family Member Relationship to Patient: Daughter Board Certified Music Therapist Name: ALANA HUNTER Delivery Method: HAND - Hand Delivered Iliana Days: Prior Verbal Notification: Recipient Understood Notice: Yes Recipient Signature: Yes Med Rec Note Co-signed by Attending: Coverage Notice Comment: Last DP export: 08/07/19 4:28 Patient Name: MICHAELA CABRAL Page 61868 at 1840 All edits/amendments must be made on the electronic document DICTATION DATE: 08/08/191838 PASTRY MIXER: RUTHIE 08/08/191838 RPT#: [id number] AL DATE: STATUS: ADM IN [facility] [address] [place] [address] END OF REPORT
--- NOTE | 2019-08-08 19:36 | NUR ---
RECIEVED UP IN BED WITH EYES OPEN AND TV ON. ALERT AND ORIENTED X4. REQUESTING IV FLUIDS BE TURNED OFF. FLUIDS TURNED OFF. PLANNED DISCHARGE FOR AM. IV TO LEFT [facility] AT THIS TIME. TELEMETRY IN PLACE. NEURO CHECKS WNL. DENIES ANY NEEDS AT THIS TIME.
[2019-08-09 04:00] VITALS: BP 130/66
--- NOTE | 2019-08-09 07:00 | NUR ---
RECEIVED REPORT. ASSUMED CARE OF PATIENT. PATIENT RESTING IN BED WITH EYES OPEN. CALL LIGHT WITHIN REACH. NO DISTRESS. ATTENTION TOWARD TELEVISION. PATIENT STATES SHE IS GOING HOME TODAY. DENIES NEEDS AT THIS TIME OTHER THAN REQUESTING IV TO BE REMOVED.
--- NOTE | 2019-08-09 07:22 | NUR ---
20 GAUGE IV REMOVED FROM LEFT FOREARM AREA. IV SITE RED, EDEMATOUS, AND WARM TO TOUCH. PATIENT COMPLAINTS OF DISCOMFORT TO AREA AND SAID SHE ASKED THE OTHER NIGHT NURSE TO TAKE IT OUT LAST NIGHT AND WAS TOLD THEY COULD NOT TAKE HER IV OUT. CATHETER TIP INTACT. AREA CLEANSED WITH ALCOHOL PREP PAD AND COVERED WITH BANDAID. PATIENT THANKED THIS CARD PLAYER FOR REMOVING PAINFUL IV.
--- NOTE | 2019-08-09 10:19 | NUR ---
TELEMETRY REMOVED AT 909 DISCHARGE INSTRUCTIONS PROVIDED TO PATIENT AND HER SON AT 15. THE SON AND THE PATIETN VERBALIZED UNDERSTANDING OF ALL INSTRUCTIONS PROVIDED. WHILE JAILYN OVER DISCHARGE INSTRUCTIONS, [employer] [facility] CALLED THE PATIENTS SON TO SET UP HOMEHEALTH INITIAL ENCOUNTER. 929 PATIENT LEFT UNIT VIA WHEELCHAIR WITH ALL PERSONAL BELONGINGS IN NO DISTRESS. PATIENT DISCHARGED TO HOME WITH HER SON.
--- NOTE | 2019-08-09 14:08 | MORECARE ---
CASE MANAGEMENT DISCHARGE SUMMARY PATIENT: MICHAELA CABRAL UNIT: [id number] ADM DATE: 08/06/19 AGE: 79 : 41 SEX: F ROOM/BED: D.210 AUTHOR: HUY,DOC PHYSICIAN: REFERRING PHYSICIAN: TACOS VELEZ MD DATE OF SERVICE: 08/09/19 Discharge Plan Patient Name: MICHAELA CABRAL Facility: [facility]:[place] : 1940 Planned Disposition: Home Anticipated Discharge Date: 08/09/19 Discharge Date: 08/09/2019 Expected LOS: 3 Initial Reviewer: [email or web address] Initial Review Date: 08/06/2019 Generated: 08/09/19 3:07 pm Comments DCP- Discharge Planning Updated by [email or web address]: Marcelina Bailey on 08/08/19 5:[address] CM contacted [facility], spoke with Alejandro, to make aware of discharge today. DC information faxed to [facility] @[phone]. No other needs. DCP- Discharge Planning Updated by [email or web address]: Milan Martinez on 08/07/19 4:[address] Patient Name: MICHAELA CABRAL Encounter No: [id number] : 1940 Primary Insurance: MEDICARE A & B Anticipated DC Date: 08-08-2019 Planned Disposition: Home with home health External Planned Provider: [facility] DCP follow-up note: CM RECEIVED ORDER TO DISCUSS DISCHARGE PLAN AND ENCOURAGE HOME HEALTH PARTICIPATION. PRETTY MET WITH PT AND DAUGHTER IN ROOM, PT WILL NOT CONSENT TO STAY FOR REHAB OR GO TO [facility]. PT WILL DISCHARGE HOME AND WILL ACCEPT WITH HOME HEALTH DISCUSSED WITH ER [facility] YESTERDAY, CHOICE SIGNED PREVIOUSLY FOR [facility]. IMPORTANT MESSAGE FROM MEDICARE. RN PRETTY MENDOZA FAXED REFERRAL TO [facility] AND NOTIFIED [facility] OF PT'S POSSIBLE DISCHARGE HOME TOMORROW RELATED BY FAMILY IN ROOM. FOR DISCHARGE, NOTIFY [facility] AT [phone]. FAX DISCHARGE INFORMATION TO [facility] AT [phone]. FAMILY TO TRANSPORT HOME. Milan Martinez CASE MANAGEMENT DCP- Discharge Planning Updated by [email or web address]: Re Mendoza on 08/07/19 4:[address] Patient Name: MICHAELA CABRAL Admission Status: ER Accout number: [id number] Admission Date: 08-06-2019 : 1940 Admission Diagnosis: Attending: TACOS VELEZ Current LOS: 1 Anticipated DC Date: 08-08-2019 Planned Disposition: Home Primary Insurance: MEDICARE A & B Discharge Planning Comments: NOTIFIED AND FAXED REFERRAL TO [facility] . GISEL SIGNED. POSSIBLE DC TOMORROW. Floor Coverings Installer: Re Mendoza DCP- Discharge Planning Updated by [email or web address]: Laverne Moore on 08/06/19 12:[address] DC PLAN: Return home with daughter next door. ANTICIPATED DC NEEDS: GISEL signed for [employer] and [employer] for DME. CM met with patient, her daughter, and son to complete initial dc planning assessment. CM educated patient on the CM role and verbal consent given by patient to complete assessment. CM verified patient's address, phone number, and emergency contact phone numbers. Patient lives at home alone and her daughter lives next door to her. Her daughter reports the patient has shoulder surgery back in April. Since that time she helps the patient shower, she fills her medication box, and her and her brother bring her meals frequently. She reports the patient could do all of these things on her own but she insists on helping her mother for safety. Patient had [facility] after her shoulder surgery but they recently discharged her from their service. At discharge patient plans to return home and feels the daughter and son feel this is a safe discharge. They said they want to talk to Dr. Velez about some concerns they have but would not elaborate with CM . CM discussed availability of home health, rehab services, and medical equipment. CM went ahead and provided GISEL form and form signed by daughter for [facility] and [employer] in case these services would be needed at mt. Transportation provider at discharge will be either daughter or son. CM will continue to follow and will assist as needed with dc plans/needs. Laverne Moore RN, [facility] DCPIA - Discharge Planning Initial Assessment Updated by [email or web address]: Laverne Moore on 08/06/19 1:13 pm * Is the patient Alert and Oriented? Yes * How many steps to enter\exit or inside your home? * PCP Dr. Velez * Pharmacy [facility] on [address] * Preadmission Environment Home Alone * ADLs Partial Dependent * Partial ADLs (Assistance needed) Bathing Medication Management * Equipment Oxygen Rolling Walker * Other Equipment pulse ox Oxygen with portability - [facility] is DME provider. Wears O2 prn according to the family. * List name and contact numbers for known caregivers / representatives who currently or will assist patient after discharge: Alana Hunter - daughter - [phone] * Verbal permission to speak to the caregivers and representatives has been obtained from the patient. Yes * Community resources currently utilized None * Please name any agencies selected above. Recently discharged from [facility] signed for [employer] if needed at mt. Daughter signed the form. * Can the patient safely return to the preadmission environment? Yes * Has this patient been hospitalized within the prior 30 days at any hospital? No Coverage Notice Reviewer: [email or web address] Apoorva Moore Notice Issued Date-Time: 08/06/2019 11:15 Notice Type: Medicare Outpatient Observation Notice Notice Delivered To: Family Member Relationship to Patient: Daughter Poiser Balance Name: Leyda Hunter Delivery Method: HAND - Hand Delivered Iliana Days: Prior Verbal Notification: Recipient Understood Notice: Recipient Signature: Med Rec Note Co-signed by Attending: Coverage Notice Comment: Reviewer: [id number] - Milan Martinez Notice Issued Date-Time: 08/07/2019 16:55 Notice Type: IM Discharge Notice Notice Delivered To: Family Member Relationship to Patient: Daughter Poiser Balance Name: ALANA HUNTER Delivery Method: HAND - Hand Delivered Iliana Days: Prior Verbal Notification: Recipient Understood Notice: Yes Recipient Signature: Yes Med Rec Note Co-signed by Attending: Coverage Notice Comment: Last DP export: 08/08/19 5:40 Patient Name: MICHAELA CABRAL Page [id number] at 1408 All edits/amendments must be made on the electronic document DICTATION DATE: 08/09/191406 JIG BOX OPERATOR: RUTHIE 08/09/191406 RPT#: [id number] MT DATE:08/09/19 STATUS: DIS IN [facility] [address] [place] [address] END OF REPORT
== END 2019-08-09 09:30 | disposition home health service (06) | DRG 699 ==
LOC: D.ER 08:43 → D.M2 10:37
PROVIDERS: Family Medicine; ADMIT Family Medicine; ATTEND Family Medicine
DX: N28.9 Disorder of kidney and ureter, unspecified (principal); E87.1 Hypo-osmolality and hyponatremia; R41.82 Altered mental status, unspecified; I10 Essential (primary) hypertension; J44.9 Chronic obstructive pulmonary disease, unspecified; E86.0 Dehydration; Z72.0 Tobacco use

== ENCOUNTER 2019-09-22 16:53 | Inpatient (IN) | payer MEDICARE ==
[~2019-09-22] VITALS: Ht 165.1 cm; Wt 60.3 kg
[~2019-09-22 16:53] MED LIST changes: +NORVASC5 MG PO; +POTASSIUM99 M1 PO
--- NOTE | 2019-09-22 17:25 | NUR ---
RECEIVED PT TO ROOM 2118 VIA WHEELCHAIR, PT WAS ABLE TO TRANSFER FROM WHEELCHAIR TO BED WITH NO TROUBLE AMBULATING. PT A/O X4, RESP EVEN AND NONLABORED ON RA. WILL ASSESS PT AND START PLAN OF CARE.
[2019-09-22 17:47] VITALS: BMI 20.8
[2019-09-22 18:00] VITALS: BP 141/68
[2019-09-22] MEDS ORDERED: PAROXETINE HCL10 MG PO (18:10)
[2019-09-22] MEDS ORDERED: VALTREX1000 MG PO (18:12)
[2019-09-22] MEDS ORDERED: MUCINEX600 MG PO (18:12)
[2019-09-22] MEDS ORDERED: ZOFRAN4 MG PO (18:15)
[2019-09-22] MEDS ORDERED: LOMOTIL 2.5-0.1 EAC1 PO (18:17)
[2019-09-22] MEDS ORDERED: SYMBICORT 16010.2 GM INH (18:18)
[2019-09-22] MEDS ORDERED: PROTONIX20 MG PO (18:21)
--- NOTE | 2019-09-22 19:02 | NUR ---
RECEIVED BEDSIDE REPORT. PATIENT IS ALERT AND ORIENTED, RESTING COMFORTABLY IN BED. RESPIRATIONS ARE EVEN AND UNLABORED. NO S/S OF DISTRESS. NO C/O PAIN. CALL LIGHT WITHIN REACH. WILL CPOC.
[2019-09-22 20:00] VITALS: BP 122/58
[2019-09-23] VITALS (7 sets, daily range): BP systolic 137–159; BP diastolic 58–810; Ht 165.1 cm; Wt 60.3 kg
--- NOTE | 2019-09-23 01:22 | NUR ---
PATIENT IS STILL UNABLE TO URINATE. BLADDER SCANNED PATIENT. 651 ML PRESENT ON BLADDER SCAN X 2. PATIENT WANTING TO ATTEMPT TO URINATE AGAIN PRIOR TO CALLING PHYSICIAN. PATIENT STATES SHE IS NO PAIN.
--- NOTE | 2019-09-23 04:12 | NUR ---
PATIENT VOIDED 600 ML. UA OBTAINED AND TAKEN TO LAB.
[2019-09-23 04:29] LABS: APPEARANCE CLEAR (CLEAR); BILIRUBIN NEGATIVE (NEGATIVE); COLOR YELLOW (YELLOW); GLUCOSE NEGATIVE (NEGATIVE); KETONE SMALL mg/dL (NEGATIVE); NITRITE NEGATIVE (NEGATIVE); PROTEIN 3+ mg/dL (NEGATIVE); SPECIFIC GRAVITY 1.015 (1.005-1.020); UROBILINOGEN NORMAL (NORMAL)
[2019-09-23 04:31] LABS: BACTERIA FEW /hpf (NEGATIVE); EPITHELIAL CELLS 0-5 /hpf (0-5); HYALINE CAST 0-5 /lpf (NONE SEEN); RED CELLS - URINE 0-5 /hpf (0-5); WHITE CELLS - URINE 0-5 /hpf (NEGATIVE)
[2019-09-23 05:43] LABS: BASOPHILS 0.2 % (0-2); EOSINOPHILS 1.1 % (0-7); HEMATOCRIT 40.9 % (36.0-48.0); HEMOGLOBIN 13.7 g/dL (12-16); IMMATURE GRANULOCYTES 0.5 % (0-5); LYMPHOCYTES 16.7 % (15-50); MCHC 33.5 g/dL (31.0-37.0); MCV 86.7 fL (80.0-100.0); MEAN PLATELET VOLUME 9.7 fL (7.4-10.4); MONOCYTES 16.3 % (2-11); NEUTROPHILS 65.2 % (40-80); PLATELET COUNT 296 10x3/uL (130-400); RBC 4.72 10x6/uL (4.00-5.40); RDW 16.1 % (11.5-14.5); WBC 10.5 10x3/uL (4.8-10.8)
[2019-09-23 05:55] LABS: ANION GAP 13.8 mmol/L (8-16); CALCIUM 8.6 mg/dL (8.5-10.1); CARBON DIOXIDE 25.7 mmol/L (21.0-32.0); CREATININE - SERUM 1.7 mg/dL (0.6-1.3); POTASSIUM - SERUM 3.5 mmol/L (3.5-5.1)
[2019-09-24 06:50] LABS: BASOPHILS 0.1 % (0-2); HEMATOCRIT 37.1 % (36.0-48.0); HEMOGLOBIN 12.5 g/dL (12-16); IMMATURE GRANULOCYTES 0.4 % (0-5); LYMPHOCYTES 9.3 % (15-50); MCH 29.1 pg (26.0-34.0); MCHC 33.7 g/dL (31.0-37.0); MCV 86.5 fL (80.0-100.0); MEAN PLATELET VOLUME 10.2 fL (7.4-10.4); MONOCYTES 13.3 % (2-11); NEUTROPHILS 75.9 % (40-80); PLATELET COUNT 276 10x3/uL (130-400); RBC 4.29 10x6/uL (4.00-5.40); RDW 16.4 % (11.5-14.5)
[2019-09-24 06:51] LABS: WBC 14.6 10x3/uL (4.8-10.8)
[2019-09-24 06:52] LABS: ANION GAP 11.4 mmol/L (8-16); CALCIUM 8.6 mg/dL (8.5-10.1); CARBON DIOXIDE 26.6 mmol/L (21.0-32.0); CREATININE - SERUM 1.3 mg/dL (0.6-1.3)
--- NOTE | 2019-09-24 07:49 | NUR ---
REPORT RECEIVED. WILL CONTINUE WITH POC. PT CURRENTLY LYING SUPINE. CALL LIGHT W/I REACH. PT IS AAO AND DENIES ANY NEEDS. NO S/S OF DISTRESS NOTED. FAMILY AT BEDSIDE. RR EVEN AND UNLABORED ON 2L 02. ENTERED ROOM TO FIND PIV OUT AND INFUSION PUMP STILL GOING. PIV WITH CATHETER TIP FULLY INTACT. PT STATES SHE DIDNT PULL IT OUT. WILL INITIATE NEW PIV ACCESS. WILL CTM.
[2019-09-24 09:08] VITALS: BP 162/89
--- NOTE | 2019-09-24 10:01 | NUR ---
AM MEDICATIONS ADMININSTERED. INITIATED NEW PIV TO THE LEFT WRIST 22GA X1 ATTEMPT. PT TOLERATED WELL. FLUSHED WITH 10ML NS TO CONFIRM PATENCY. WILL CTM. NS INFUSING @100ML/HR VIA L.WRIST.
--- NOTE | 2019-09-24 12:22 | MORECARE ---
CASE MANAGEMENT DISCHARGE SUMMARY PATIENT: MICHAELA CABRAL J UNIT: [id number] ADM DATE: 09/23/19 AGE: 79 : 41 SEX: F ROOM/BED: D.4909 AUTHOR: CRISPIN SON PHYSICIAN: REFERRING PHYSICIAN: TACOS VELEZ MD DATE OF SERVICE: 09/24/19 Discharge Plan Patient Name: MICHAELA CABRAL Facility: [facility]:[place] : 1940 Planned Disposition: Home with Home Health Anticipated Discharge Date: Discharge Date: Expected LOS: Initial Reviewer: [email or web address] Initial Review Date: 09/22/2019 Generated: 09/24/19 1:21 pm Patient Name: MICHAELA CABRAL Page [phone] at 1222 All edits/amendments must be made on the electronic document DICTATION DATE: 09/24/19 1221 BACTERIOLOGY RESEARCH ASSISTANT: RUTHIE 09/24/19 1221 RPT#: [id number] DC DATE: STATUS: ADM IN [facility] [address] [place] [address] END OF REPORT
--- NOTE | 2019-09-24 12:31 | MORECARE ---
CASE MANAGEMENT DISCHARGE SUMMARY PATIENT: MICHAELA CABRAL UNIT: [id number] ADM DATE: 09/23/19 AGE: 79 : 41 SEX: F ROOM/BED: D.6367 AUTHOR: HUY,DOC PHYSICIAN: REFERRING PHYSICIAN: TACOS VELEZ MD DATE OF SERVICE: 09/24/19 Discharge Plan Patient Name: MICHAELA CABRAL Facility: [facility]:[place] : 1940 Planned Disposition: Home with Home Health Anticipated Discharge Date: Discharge Date: Expected LOS: Initial Reviewer: [email or web address] Initial Review Date: 09/22/2019 Generated: 09/24/19 1:30 pm Comments DCP- Discharge Planning Updated by [id number]: Alexsandra Lund on 09/24/19 11:[address] Patient Name: MICHAELA CABRAL Admission Status: Urgent Accout number: [id number] Admission Date: 09-23-2019 : 1940 Admission Diagnosis: Attending: TACOS VELEZ Current LOS: 1 Anticipated DC Date: Planned Disposition: Home with Home Health Primary Insurance: MEDICARE A & B Discharge Planning Comments: CM met with patient to complete initial dc planning assessment. CM educated patient on the CM role and verbal consent given by patient to complete assessment. CM verified patient's address, phone number, and emergency contact phone numbers. Patient lives at home alone, but Leyda (daughter) lives next door. Patient stated her daughter cooks, cleans, and tends to her needs. At discharge patient plans to return home and feels this is a safe discharge. CM discussed availability of home health, rehab services, and medical equipment. Patient states she uses [facility] and uses [facility] for home 02. GISEL signed. Transportation provider at discharge will be her daughter . CM will continue to follow and will assist as needed with dc plans/needs. Tamale Machine Feeder: Alexsandra Lund MSN, RN CM DCPIA - Discharge Planning Initial Assessment Updated by [id number]: Alexsandra Lund on 09/24/19 12:22 pm * How many steps to enter\exit or inside your home? 5/0 * PCP Faith * Pharmacy [facility] * Preadmission Environment Home Alone * Equipment CPAP Nebulizer Oxygen Rolling Walker * List name and contact numbers for known caregivers / representatives who currently or will assist patient after discharge: Leyda (daughter [phone] * Verbal permission to speak to the caregivers and representatives has been obtained from the patient. Yes * Community resources currently utilized Home Health * Please name any agencies selected above. [facility] * Additional services required to return to the preadmission environment? No * Can the patient safely return to the preadmission environment? Yes * Has this patient been hospitalized within the prior 30 days at any hospital? No Coverage Notice Reviewer: [id number] Apoorva Lund Notice Issued Date-Time: 09/24/2019 10:10 Notice Type: Patient Choice Letter Notice Delivered To: Patient Relationship to Patient: School Bus Driver/Custodian Name: Delivery Method: HAND - Hand Delivered Iliana Days: Prior Verbal Notification: Recipient Understood Notice: Yes Recipient Signature: Yes Med Rec Note Co-signed by Attending: Coverage Notice Comment: Last DP export: 09/24/19 11:22 a Patient Name: MICHAELA CABRAL Page 60300 at 1231 All edits/amendments must be made on the electronic document DICTATION DATE: 09/24/19 1230 TIRE SPOTTER: RUTHIE 09/24/19 1230 RPT#: [id number] DC DATE: STATUS: ADM IN [facility] [address] [place] [address] END OF REPORT
[2019-09-24 12:51] VITALS: BP 159/74
[2019-09-24 16:40] VITALS: BP 144/75
[2019-09-24 20:30] VITALS: BP 147/73
[2019-09-25 00:45] VITALS: BP 155/69
[2019-09-25 04:48] VITALS: BP 157/66
[2019-09-25 06:14] LABS: BASOPHILS 0.2 % (0-2); EOSINOPHILS 4.1 % (0-7); HEMOGLOBIN 11.8 g/dL (12-16); IMMATURE GRANULOCYTES 0.4 % (0-5); LYMPHOCYTES 11.1 % (15-50); MCH 29.1 pg (26.0-34.0); MCHC 32.8 g/dL (31.0-37.0); MEAN PLATELET VOLUME 9.8 fL (7.4-10.4); MONOCYTES 12.6 % (2-11); NEUTROPHILS 71.6 % (40-80); PLATELET COUNT 249 10x3/uL (130-400); RBC 4.05 10x6/uL (4.00-5.40); RDW 16.7 % (11.5-14.5); WBC 11.3 10x3/uL (4.8-10.8)
[2019-09-25 06:26] LABS: CALCIUM 8.4 mg/dL (8.5-10.1); CARBON DIOXIDE 25.8 mmol/L (21.0-32.0); CREATININE - SERUM 1.3 mg/dL (0.6-1.3); MCV 88.9 fL (80.0-100.0)
[2019-09-25 06:27] LABS: POTASSIUM - SERUM 3.8 mmol/L (3.5-5.1)
--- NOTE | 2019-09-25 07:50 | NUR ---
REPORT RECEIVED. WILL CONTINUE WITH POC. PT CURRENTLY LYING SEMI FOWLERS. CALL LIGHT W/I REACH. FAMILY AT BEDSIDE. RR EVEN AND UNLABORED ON 3L 02. NS INFUSING @100ML/HR VIA L.WRIST PIV. PT DENIES ANY NEEDS. WILL CTM.
[2019-09-25 09:18] VITALS: BP 166/89
--- NOTE | 2019-09-25 12:35 | NUR ---
Nutrition Follow-up: Pt reports that she is eating well. States last BM was Mon (09/21) but that this is not unusual for her. Diet: Regular PO intake: 68% avg x 7 meals No new wt; last wt: 133# (09/23) Labs noted: Na 135, GFR 42, Ca 8.4 Meds noted: NS @ 100, potassium gluconate -May consider cardiac diet. -Need new wt; noted daily wts ordered. -RD following.
--- NOTE | 2019-09-25 15:20 | NUR ---
PT DISCHARGED HOME VIA WHEELCHAIR WITH FAMILY. TELEMETRY REMOVED AND RETURNED. PIV REMOVED WITH CATHETER TIP FULLY INTACT. PT SIGNED PROPER DISCHARGE INSTRUCTIONS AND REMOVED ALL VALUABLES FROM THE ROOM.
--- NOTE | 2019-09-25 16:47 | MORECARE ---
CASE MANAGEMENT DISCHARGE SUMMARY PATIENT: MICHAELA CABRAL UNIT: [id number] ADM DATE: 09/23/19 AGE: 79 : 41 SEX: F ROOM/BED: D.1419 AUTHOR: HUY,DOC PHYSICIAN: REFERRING PHYSICIAN: TACOS VELEZ MD DATE OF SERVICE: 09/25/19 Discharge Plan Patient Name: MICHAELA CABRAL Facility: [facility]:[place] : 1940 Planned Disposition: Home with Home Health Anticipated Discharge Date: 09/18/19 Discharge Date: 09/25/2019 Expected LOS: -5 Initial Reviewer: [email or web address] Initial Review Date: 09/22/2019 Generated: 09/25/19 5:47 pm Comments DCP- Discharge Planning Updated by [email or web address]: Milan Martinez on 09/25/19 3:[address] Patient Name: MICHAELA CABRAL Encounter No: [id number] : 1940 Primary Insurance: MEDICARE A & B Anticipated DC Date: 09-18-2019 Planned Disposition: Home with Home Health External Planned Provider: [facility] DCP follow-up note: PRETTY RECEIVED DISCHARGE ORDERS, RN PRETTY MENDOZA NOTIFIED RAY OF [facility] WHO WILL HAVE PT PLACED ON SCHEDULE FOR RESUMPTION OF HOME HEALTH. CM FAXED DISCHARGE INFORMATION TO [facility] AT [phone]. Milan Martinez CASE MAYKEL DCP- Discharge Planning Updated by [email or web address]: Alexsandra Lund on 09/24/19 11:[address] Patient Name: MICHAELA CABRAL Admission Status: Urgent Accout number: [id number] Admission Date: 09-23-2019 : 1940 Admission Diagnosis: Attending: TACOS VELEZ Current LOS: 1 Anticipated DC Date: Planned Disposition: Home with Home Health Primary Insurance: MEDICARE A & B Discharge Planning Comments: CM met with patient to complete initial dc planning assessment. CM educated patient on the CM role and verbal consent given by patient to complete assessment. CM verified patient's address, phone number, and emergency contact phone numbers. Patient lives at home alone, but Leyda (daughter) lives next door. Patient stated her daughter cooks, cleans, and tends to her needs. At discharge patient plans to return home and feels this is a safe discharge. CM discussed availability of home health, rehab services, and medical equipment. Patient states she uses [facility] and uses [facility] for home 02. GISEL signed. Transportation provider at discharge will be her daughter . CM will continue to follow and will assist as needed with dc plans/needs. Service Loss Control Consultant: Alexsandra Lund MSN, RN PRETTY DCPIA - Discharge Planning Initial Assessment Updated by [email or web address]: Alexsandra Lund on 09/24/19 12:22 pm * How many steps to enter\exit or inside your home? 5/0 * PCP Faith * Pharmacy [facility] * Preadmission Environment Home Alone * Equipment CPAP Nebulizer Oxygen Rolling Walker * List name and contact numbers for known caregivers / representatives who currently or will assist patient after discharge: Leyda (daughter [phone] * Verbal permission to speak to the caregivers and representatives has been obtained from the patient. Yes * Community resources currently utilized Home Health * Please name any agencies selected above. [facility] * Additional services required to return to the preadmission environment? No * Can the patient safely return to the preadmission environment? Yes * Has this patient been hospitalized within the prior 30 days at any hospital? No External Providers External Provider: [facility] Next Contact Date: 09/25/2019 Service Request Date: Service Type: Resolution: Reviewer: Comments: Coverage Notice Reviewer: [email or web address] - Alexsandra Lund Notice Issued Date-Time: 09/24/2019 10:10 Notice Type: Patient Choice Letter Notice Delivered To: Patient Relationship to Patient: Deputy Clerk Name: Delivery Method: HAND - Hand Delivered Iliana Days: Prior Verbal Notification: Recipient Understood Notice: Yes Recipient Signature: Yes Med Rec Note Co-signed by Attending: Coverage Notice Comment: Last DP export: 09/24/19 11:31 a Patient Name: MICHAELA CABRAL Page [id number] at 2287 All edits/amendments must be made on the electronic document DICTATION DATE: 09/25/191646 BALANCING MACHINE SET UP WORKER: RUTHIE 09/25/191646 RPT#: [id number] DC DATE:09/25/19 STATUS: DIS IN [place] [address] [place] [address] END OF REPORT
== END 2019-09-25 15:21 | disposition home health service (06) | DRG 314 ==
LOC: D.SDCHOLD 16:53 → D.M2 16:53 → OBSVTIME 16:54 → D.M2 17:18 → D.SDCHOLD 09-24 15:42 → D.M2 09-25 15:21
PROVIDERS: ADMIT Family Medicine; ATTEND Family Medicine
DX: I95.9 Hypotension, unspecified (principal); J81.0 Acute pulmonary edema; E87.1 Hypo-osmolality and hyponatremia; E86.0 Dehydration; N28.9 Disorder of kidney and ureter, unspecified; F17.200 Nicotine dependence, unspecified, uncomplicated; J44.9 Chronic obstructive pulmonary disease, unspecified; F32.9 Major depressive disorder, single episode, unspecified; I10 Essential (primary) hypertension